=== PATIENT | male | born 1960 | race Caucasian/White ===

== ENCOUNTER 2017-02-07 14:05 | Emergency (ER) | payer OTHER ==
[2017-02-07 14:58] LABS: RED BLOOD COUNT 4.75 M/UL (4.20-5.50); WHITE BLOOD COUNT 6.9 K/UL (4.5-11.0)
[2017-02-07 15:20] LABS: BUN/CREATININE RATIO 18 (0-10)
== END 2017-02-07 16:51 | disposition home or self-care (01) ==
LOC: ER1 14:05
PROVIDERS: Student in an Organized Health Care Education/Training Program
DX: R42 Dizziness and giddiness (principal); I10 Essential (primary) hypertension; I42.9 Cardiomyopathy, unspecified; Z88.6 Allergy status to analgesic agent; Z79.02 Long term (current) use of antithrombotics/antiplatelets; Z79.01 Long term (current) use of anticoagulants; Z79.899 Other long term (current) drug therapy; Z95.810 Presence of automatic (implantable) cardiac defibrillator; Z95.1 Presence of aortocoronary bypass graft
CPT/HCPCS: 36415; 70450; 71010; 80053; 82550; 82553; 83874; 84484; 85025; 85610; 85730; 93005; 96360; 96361; 99284; G0480

== ENCOUNTER → 2022-03-01 | Outpatient (CLI) | payer OTHER ==
[~2022-03-01] MED LIST: BENTYL 20MG TAB20 MG PO; ZOFRAN ODT 4 MG4 MG SL
== END ==
LOC: HEART 5 02-24 11:00
DX: I25.10 Atherosclerotic heart disease of native coronary artery without angina pectoris (principal); I25.5 Ischemic cardiomyopathy; Z95.810 Presence of automatic (implantable) cardiac defibrillator; I08.1 Rheumatic disorders of both mitral and tricuspid valves
CPT/HCPCS: 93306

== ENCOUNTER → 2022-06-04 | Outpatient (CLI) | payer OTHER | LOC: KOH-I 13:08 | DX: R06.02 Shortness of breath (principal); R91.8 Other nonspecific abnormal finding of lung field; K76.9 Liver disease, unspecified | CPT/HCPCS: 71250 ==

== ENCOUNTER → 2022-06-23 | Outpatient (CLI) | payer OTHER ==
[~2022-06-23] VITALS: Ht 180.3 cm; Wt 106.6 kg
== END ==
LOC: EROP 11:29
DX: U07.1 COVID-19 (principal)
CPT/HCPCS: M0222; Q0222

== ENCOUNTER → 2022-08-02 | Outpatient (CLI) | payer OTHER | LOC: KOH-I 15:04 | DX: R05.9 Cough, unspecified (principal) | CPT/HCPCS: 71046 ==

== ENCOUNTER → 2022-08-07 | Outpatient (CLI) | payer OTHER | LOC: SLEEP 12:52 | DX: K21.9 Gastro-esophageal reflux disease without esophagitis (principal); R52 Pain, unspecified; J30.9 Allergic rhinitis, unspecified | CPT/HCPCS: 95811 ==